=== PATIENT | female | born 1970 | race African-American/Black ===

== ENCOUNTER 2020-03-24 20:20 | Emergency (ER) | payer MEDICAID ==
[~2020-03-24] VITALS: Ht 165.1 cm; Wt 53.1 kg
[2020-03-24 20:20] VITALS: BP 101/78
[2020-03-24] MEDS ORDERED: predniSONE 20 MG TABLET ONE (20:36)
[2020-03-24] MEDS ORDERED: PRED20TA PO (20:38)
[2020-03-24] MEDS ORDERED: ALBU8.5H8 INH (20:38)
[2020-03-24] MEDS ORDERED: IPRATROPIUM NEB FS 0.5 MG/2.5 ML AMPUL.NEB ONE (20:42)
[2020-03-24] MEDS ORDERED: ALBUTEROL FS 2.5 MG/3 ML VIAL.NEB ONE (20:42)
--- NOTE | 2020-03-24 20:43 | NUR ---
RT AT BEDSIDE
[2020-03-24] MEDS ORDERED: predniSONE 20 MG TABLET PO ONE (21:00)
[2020-03-24] MEDS ORDERED: IPRATROPIUM NEB FS 0.5 MG/2.5 ML AMPUL.NEB NEB ONE (21:00)
[2020-03-24] MEDS ORDERED: ALBUTEROL FS 2.5 MG/3 ML VIAL.NEB NEB ONE (21:00)
--- NOTE | 2020-03-24 21:03 | NUR ---
Patient discharged to home in stable condition. Written and verbal after care instructions given. Patient verbalizes understanding of instruction.
== END 2020-03-24 21:05 | disposition home or self-care (01) ==
LOC: ER 20:24
DX: J45.901 Unspecified asthma with (acute) exacerbation (principal); F17.210 Nicotine dependence, cigarettes, uncomplicated; Z88.0 Allergy status to penicillin
CPT/HCPCS: 94640; 99283; 99406; J7512